=== PATIENT | male | born 1965 | race African-American/Black ===

== ENCOUNTER 2017-01-13 23:44 | Emergency (ER) | payer SELFPAY ==
[~2017-01-13] VITALS: Ht 175.3 cm; Wt 93.0 kg
[2017-01-14 03:37] VITALS: BP 130/94
== END 2017-01-14 05:34 | disposition home or self-care (01) ==
LOC: ER 23:44
DX: Z76.0 Encounter for issue of repeat prescription (principal); E11.9 Type 2 diabetes mellitus without complications
CPT/HCPCS: 99283

== ENCOUNTER 2017-08-19 14:40 | Emergency (ER) | payer SELFPAY ==
[~2017-08-19] VITALS: Ht 175.3 cm; Wt 91.0 kg
[2017-08-19 18:29] VITALS: BP 131/104
== END 2017-08-19 18:34 | disposition home or self-care (01) ==
LOC: ER 16:25
DX: Z76.0 Encounter for issue of repeat prescription (principal); E11.9 Type 2 diabetes mellitus without complications; R03.0 Elevated blood-pressure reading, without diagnosis of hypertension; Z79.84 Long term (current) use of oral hypoglycemic drugs
CPT/HCPCS: 99283

== ENCOUNTER 2017-09-16 15:58 | Emergency (ER) | payer SELFPAY ==
[~2017-09-16] VITALS: Ht 175.3 cm; Wt 95.0 kg
[2017-09-16 16:30] VITALS: BP 142/97
== END 2017-09-16 17:58 | disposition home or self-care (01) ==
LOC: ER 17:15
DX: Z76.0 Encounter for issue of repeat prescription (principal); E11.9 Type 2 diabetes mellitus without complications
CPT/HCPCS: 82962; 99283

== ENCOUNTER 2017-10-20 08:46 | Emergency (ER) | payer SELFPAY ==
[~2017-10-20] VITALS: Ht 175.3 cm; Wt 100.0 kg
[2017-10-20 11:51] VITALS: BP 153/99
== END 2017-10-20 13:04 | disposition home or self-care (01) ==
LOC: ER 09:11
DX: Z76.0 Encounter for issue of repeat prescription (principal); E11.9 Type 2 diabetes mellitus without complications
CPT/HCPCS: 82962; 99283

== ENCOUNTER 2017-12-01 09:05 | Emergency (ER) | payer SELFPAY ==
[~2017-12-01] VITALS: Ht 167.6 cm; Wt 93.0 kg
[2017-12-01 09:13] VITALS: BP 159/100
== END 2017-12-01 10:45 | disposition home or self-care (01) ==
LOC: ER 09:05
DX: Z76.0 Encounter for issue of repeat prescription (principal); E11.9 Type 2 diabetes mellitus without complications
CPT/HCPCS: 82962; 99283

== ENCOUNTER 2018-01-01 08:57 | Emergency (ER) | payer SELFPAY ==
[~2018-01-01] VITALS: Ht 185.4 cm; Wt 93.0 kg
[2018-01-01] MEDS ORDERED: GLIP10TA10 PO (09:07)
[2018-01-01 09:50] VITALS: BP 130/95
== END 2018-01-01 09:53 | disposition home or self-care (01) ==
LOC: ER 08:57
DX: Z76.0 Encounter for issue of repeat prescription (principal); E11.9 Type 2 diabetes mellitus without complications
CPT/HCPCS: 82962; 99283

== ENCOUNTER 2018-02-02 09:04 | Emergency (ER) | payer SELFPAY ==
[~2018-02-02] VITALS: Ht 182.9 cm; Wt 94.0 kg
[~2018-02-02 09:04] MED LIST: GLIP10TA10 PO
[2018-02-02 09:08] VITALS: BP 150/101
== END 2018-02-02 11:31 | disposition home or self-care (01) ==
LOC: ER 09:04
DX: Z76.0 Encounter for issue of repeat prescription (principal)
CPT/HCPCS: 99283

== ENCOUNTER 2018-03-17 21:07 | Emergency (ER) | payer SELFPAY ==
[~2018-03-17] VITALS: Ht 180.3 cm; Wt 98.0 kg
[2018-03-17 23:06] VITALS: BP 145/88
== END 2018-03-18 00:21 | disposition home or self-care (01) ==
LOC: ER 21:07
DX: E11.65 Type 2 diabetes mellitus with hyperglycemia (principal); Z79.899 Other long term (current) drug therapy
CPT/HCPCS: 82962; 99283

== ENCOUNTER 2018-07-17 08:42 | Emergency (ER) | payer SELFPAY ==
[~2018-07-17] VITALS: Ht 182.9 cm; Wt 100.0 kg
[2018-07-17 09:10] VITALS: BP 139/87
== END 2018-07-17 09:34 | disposition home or self-care (01) ==
LOC: ER 09:02
DX: M54.5 Low back pain (principal); E11.9 Type 2 diabetes mellitus without complications
CPT/HCPCS: 82962; 99281; 99282

== ENCOUNTER 2018-11-05 10:50 | Emergency (ER) | payer SELFPAY ==
[~2018-11-05] VITALS: Ht 185.4 cm; Wt 97.0 kg
[2018-11-05 13:43] VITALS: BP 150/99
== END 2018-11-05 13:45 | disposition home or self-care (01) ==
LOC: ER 10:50
DX: E11.9 Type 2 diabetes mellitus without complications (principal); Z76.0 Encounter for issue of repeat prescription
CPT/HCPCS: 99283

== ENCOUNTER 2019-01-27 22:23 | Emergency (ER) | payer SELFPAY ==
[~2019-01-27] VITALS: Ht 182.9 cm; Wt 93.0 kg
[2019-01-28 00:06] VITALS: BP 131/80
== END 2019-01-27 23:45 | disposition home or self-care (01) ==
LOC: ER 23:31
DX: Z76.0 Encounter for issue of repeat prescription (principal); E11.9 Type 2 diabetes mellitus without complications
CPT/HCPCS: 99283

== ENCOUNTER 2019-05-24 09:46 | Emergency (ER) | payer SELFPAY ==
[~2019-05-24] VITALS: Ht 182.9 cm; Wt 93.0 kg
[2019-05-24] MEDS ORDERED: INSULIN REGULAR (HUMULIN R) 300UNITS/3ML SUBCUT ONE (11:30)
[2019-05-24 11:47] LABS: CHLORIDE 104 mEq/L (98-107)
[2019-05-24 12:14] VITALS: BP 153/100
== END 2019-05-24 12:18 | disposition home or self-care (01) ==
LOC: ER 09:46
DX: Z76.0 Encounter for issue of repeat prescription (principal); I10 Essential (primary) hypertension; E11.9 Type 2 diabetes mellitus without complications
CPT/HCPCS: 36415; 80048; 82962; 99283

== ENCOUNTER 2019-06-16 00:45 | Emergency (ER) | payer SELFPAY ==
[~2019-06-16] VITALS: Ht 182.9 cm; Wt 93.0 kg
[2019-06-16 01:02] VITALS: BP 148/102
[2019-06-16 02:40] LABS: CHLORIDE 107 mEq/L (98-107)
== END 2019-06-16 02:53 | disposition home or self-care (01) ==
LOC: ER 00:45
DX: Z76.0 Encounter for issue of repeat prescription (principal); E11.9 Type 2 diabetes mellitus without complications; I10 Essential (primary) hypertension
CPT/HCPCS: 36415; 80048; 82962; 99283

== ENCOUNTER 2019-07-20 17:02 | Emergency (ER) | payer SELFPAY ==
[~2019-07-20] VITALS: Ht 182.9 cm; Wt 100.0 kg
[2019-07-20 22:54] VITALS: BP 131/89
== END 2019-07-20 22:55 | disposition home or self-care (01) ==
LOC: ER 17:02
DX: E11.9 Type 2 diabetes mellitus without complications (principal); I10 Essential (primary) hypertension; Z76.0 Encounter for issue of repeat prescription
CPT/HCPCS: 82962; 99283

== ENCOUNTER 2019-08-05 16:40 | Emergency (ER) | payer SELFPAY ==
[~2019-08-05] VITALS: Ht 180.3 cm; Wt 97.0 kg
[2019-08-05 17:18] VITALS: BP 154/98
== END 2019-08-05 18:25 | disposition home or self-care (01) ==
LOC: ER 16:40
DX: Z76.0 Encounter for issue of repeat prescription (principal); E11.9 Type 2 diabetes mellitus without complications; I10 Essential (primary) hypertension
CPT/HCPCS: 99283